=== PATIENT | male | born 1985 | race Caucasian/White ===

== ENCOUNTER → 2023-08-10 15:52 | Outpatient (REF) | payer OTHER, SELFPAY | LOC: RAD 15:52 | PROVIDERS: ATTENDING PHYSICIAN Urology; FAMILY PHYSICIAN Physician Assistant Medical | DX: D49.59 Neoplasm of unspecified behavior of other genitourinary organ (principal) | CPT/HCPCS: 76870; 93976 ==

== ENCOUNTER → 2024-09-12 09:06 | Outpatient (REF) | payer SELFPAY | LOC: HWRAD 09:06 | PROVIDERS: ATTENDING PHYSICIAN Physician Assistant Medical | DX: E78.2 Mixed hyperlipidemia (principal) | CPT/HCPCS: 75571 ==